=== PATIENT | female | born 1995 | race Caucasian/White ===

== ENCOUNTER 2017-03-15 06:39 | Day surgery (SDC) | payer MEDICAID, OTHER ==
[2017-03-14 09:59] VITALS: BP 142/83
[~2017-03-15] VITALS: Ht 162.6 cm; Wt 84.0 kg
[~2017-03-15 06:39] MED LIST: None per pt
[2017-03-15] MEDS ORDERED: LACTATED RINGERS 1,000 ML IV SCH (07:23)
[2017-03-15] MEDS ORDERED: LIDOCAINE 1%, 2ML SQ PRN (07:30)
[2017-03-15 07:45] LABS: HCG UR OBC PASS
[2017-03-15] MEDS ORDERED: DEXAMETHASONE 4 MG/ML, 1ML ONE (08:08)
[2017-03-15] MEDS ORDERED: ONDANSETRON 2MG/ML, 2ML ONE (08:08)
[2017-03-15] MEDS ORDERED: SUCCINYLCHOLINE 20 MG/ML, 10ML ONE (08:08)
[2017-03-15] MEDS ORDERED: PROPOFOL 10 MG/ML, 20ML ONE (08:08)
[2017-03-15] MEDS ORDERED: ROCURONIUM 10 MG/ML ONE (08:08)
[2017-03-15] MEDS ORDERED: FENTANYL PF 100 MCG/2ML ONE (08:18)
[2017-03-15] MEDS ORDERED: ONDANSETRON 2MG/ML, 2ML IVPush PRN (08:30)
[2017-03-15] MEDS ORDERED: MEPERIDINE/PF 25MG/0.5ML IVPush PRN (08:30)
[2017-03-15] MEDS ORDERED: PROMETHAZINE 25 MG/ML, 1ML IV PRN (08:30)
[2017-03-15] MEDS ORDERED: FENTANYL PF 100 MCG/2ML IV PRN (08:30)
[2017-03-15] MEDS ORDERED: HYDROmorphone 1 MG/ML, 1ML IV PRN (08:30)
[2017-03-15] MEDS ORDERED: ALBUTEROL SULFATE 2.5 MG/3 ML NPPB PRN (08:30)
[2017-03-15] MEDS ORDERED: MIDAZOLAM 1 MG/ML, 2ML IV PRN (08:30)
[2017-03-15] MEDS ORDERED: LABETALOL 5MG/ML, 20ML IV PRN (08:30)
[2017-03-15] MEDS ORDERED: OXYcodone 5 MG/5 ML ORAL.SOL UDC PO PRN (08:30)
[2017-03-15] MEDS ORDERED: hydrALAzine 20 MG/ML, 1ML IV PRN (08:30)
== END 2017-03-15 10:35 ==
LOC: OUT 06:39
PROVIDERS: ATTEND Internal Medicine Geriatric Medicine
DX: K80.50 Calculus of bile duct without cholangitis or cholecystitis without obstruction (principal)
CPT/HCPCS: 43275; 74328; 81025; C1769; J0330; J1100; J2405; J2704; J3010; J3490; J7120; Q9967; Q9965